=== PATIENT | female | born 1930 | race Caucasian/White ===

== ENCOUNTER 2017-06-13 14:36 | Inpatient (IN) | payer MEDICARE ==
[~2017-06-13] VITALS: Ht 157.5 cm; Wt 53.1 kg
[~2017-06-13 14:36] MED LIST: ANTIBIOTIC PO; ASPI-515 PO; ASPI325T17 PO; CHOL20002 PO; GABA300C10 PO; IBUP200T64 PO; LISI40TA PO; LOVA20TA2 PO; MULT-224 PO; OXYC5TAB2 PO; TRAM50TA2 PO; VIT1TABL32 PO; VITAMIN B1 PO
[2017-06-13] MEDS ORDERED: LIDOCAINE 1%-EPI 1:100K, 20ML INFIL ONE (15:30)
[2017-06-13] MEDS ORDERED: LIDOCAINE 1%, 20ML ONE (17:11)
[2017-06-13] MEDS ORDERED: SODIUM CHLORIDE FLUSH 10ML SYR IVF ONE (17:30)
[2017-06-13 17:43] LABS: HEMATOCRIT 37.2 % (34.6-47.8); HEMOGLOBIN 12.4 g/dL (11.7-16.4); WHITE BLOOD COUNT 11.8 x10^3/uL (3.4-10)
[2017-06-13 17:48] LABS: BLOOD UREA NITROGEN 31 mg/dL (7-18)
[2017-06-13] MEDS ORDERED: POLYETHYLENE GLYCOL 17 GM PACKET PO PRN (20:00)
[2017-06-13] MEDS ORDERED: morphine SULFATE 10 MG/ML, 1ML IVPush PRN (20:00)
[2017-06-13] MEDS ORDERED: BISACODYL 10 MG SUPP PR PRN (20:00)
[2017-06-13] MEDS ORDERED: ONDANSETRON 2MG/ML, 2ML IVPush PRN (20:00)
[2017-06-13] MEDS ORDERED: TEMPLATE NON-FORMULARY MED. (Lovastatin** 20 MG) PO SCH (21:00)
[2017-06-13] MEDS ORDERED: ACETAMINOPHEN 325 MG TABLET ONE (22:53)
[2017-06-13] MEDS: ACETAMINOPHEN 325 MG TABLET PO PRN (23:07)
[2017-06-13] MEDS: SODIUM CHLORIDE 0.9% 1,000 ML IV SCH (23:07)
[2017-06-13 23:53] VITALS: BP 157/68
[2017-06-13] MEDS: GABAPENTIN 300 MG CAPSULE PO SCH (23:55)
[2017-06-14] MEDS ORDERED: CEFAZOLIN PMX 2GM/50ML 50 ML IVPB SCH (01:00)
[2017-06-14 02:25] VITALS: BP 105/63
[2017-06-14 05:21] LABS: HEMATOCRIT 28.1 % (34.6-47.8); HEMOGLOBIN 9.3 g/dL (11.7-16.4); WHITE BLOOD COUNT 9.3 x10^3/uL (3.4-10)
[2017-06-14 05:55] LABS: ASPARTATE AMINO TRANSFERASE 16 U/L (15-37); BLOOD UREA NITROGEN 24 mg/dL (7-18)
[2017-06-14 07:53] VITALS: BP 112/65
[2017-06-14] MEDS: ACETAMINOPHEN 325 MG TABLET PO PRN ×3 (07:57→19:09)
[2017-06-14] MEDS: LISINOPRIL 20 MG TABLET PO SCH (07:57)
[2017-06-14] MEDS: MULTIVITAMIN 1 TABLET PO SCH (07:59)
[2017-06-14] MEDS: SENNA/DOCUSATE TABLET PO SCH (07:59)
[2017-06-14] MEDS: GABAPENTIN 300 MG CAPSULE PO SCH ×2 (07:59→20:34)
[2017-06-14] MEDS: MULTIVITAMINS/MINERALS TABLET PO SCH (07:59)
[2017-06-14] MEDS: CHOLECALCIFEROL 1,000 UNIT TABLET PO SCH (08:00)
[2017-06-14] MEDS: THIAMINE 100MG TABLET PO SCH (08:00)
[2017-06-14 14:12] VITALS: BP 128/63
[2017-06-14] MEDS: SODIUM CHLORIDE 0.9% 1,000 ML IV SCH (14:54)
[2017-06-14] MEDS ORDERED: KETOROLAC 60 MG/2 ML ONE (16:32)
[2017-06-14] MEDS ORDERED: TRANEXAMIC ACID 100 MG/ML, 10ML ONE ×2 (16:32→16:33)
[2017-06-14] MEDS ORDERED: EPINEPHRINE 1 MG/ML, 1ML ONE (16:33)
[2017-06-14] MEDS ORDERED: SODIUM CHLORIDE 0.9% 50 ML ONE (16:33)
[2017-06-14] MEDS ORDERED: VANCOMYCIN 1,000 MG ONE (16:33)
[2017-06-14] MEDS ORDERED: ROPIvacaine/PF 0.5%, 30 ML ONE (16:34)
[2017-06-14] MEDS ORDERED: HYDROmorphone 1 MG/ML, 1ML IV PRN (17:00)
[2017-06-14] MEDS ORDERED: hydrALAzine 20 MG/ML, 1ML IV PRN (17:00)
[2017-06-14] MEDS ORDERED: ONDANSETRON 2MG/ML, 2ML IVPush PRN (17:00)
[2017-06-14] MEDS ORDERED: 0.9 % SODIUM CHLORIDE 50 ML IV SCH (17:00)
[2017-06-14] MEDS ORDERED: FENTANYL PF 100 MCG/2ML IV PRN (17:00)
[2017-06-14] MEDS ORDERED: LABETALOL 5MG/ML, 20ML IV PRN (17:00)
[2017-06-14] MEDS ORDERED: ROCURONIUM 10 MG/ML ONE (17:06)
[2017-06-14] MEDS ORDERED: FENTANYL PF 250 MCG/5ML ONE (17:06)
[2017-06-14] MEDS ORDERED: SUCCINYLCHOLINE 20 MG/ML, 10ML ONE (17:06)
[2017-06-14] MEDS ORDERED: PROPOFOL 10 MG/ML, 20ML ONE (17:06)
[2017-06-14] MEDS ORDERED: CEFAZOLIN 1,000 MG ONE (17:06)
[2017-06-14] MEDS ORDERED: DEXAMETHASONE 4 MG/ML, 1ML ONE (17:06)
[2017-06-14] MEDS ORDERED: PHENYLEPHRINE 10 MG/ML ONE (17:06)
[2017-06-14] MEDS ORDERED: ACETAMINOPHEN 650 MG/20.3 ML UDC ONE (19:09)
[2017-06-14] MEDS: ASPIRIN 81 MG TABLET CHEW PO SCH (20:16)
[2017-06-14] MEDS: LOVASTATIN 40 MG TABLET PO SCH (20:35)
[2017-06-14 20:47] VITALS: BP 111/54
[2017-06-14] MEDS: CEFTRIAXONE PMX 1GM/50ML 50 ML IV SCH (21:47)
[2017-06-15 00:31] VITALS: BP 109/55
[2017-06-15 04:31] VITALS: BP 110/50
[2017-06-15 05:24] LABS: HEMOGLOBIN 7.5 g/dL (11.7-16.4); WHITE BLOOD COUNT 9.8 x10^3/uL (3.4-10)
[2017-06-15] MEDS: SODIUM CHLORIDE 0.9% 1,000 ML IV SCH ×2 (05:33→17:48)
[2017-06-15 05:54] LABS: ASPARTATE AMINO TRANSFERASE 16 U/L (15-37); BLOOD UREA NITROGEN 21 mg/dL (7-18)
[2017-06-15] MEDS: ACETAMINOPHEN 325 MG TABLET PO PRN ×2 (07:12→22:51)
[2017-06-15 07:28] VITALS: BP 110/53
[2017-06-15] MEDS: MULTIVITAMIN 1 TABLET PO SCH (09:00)
[2017-06-15] MEDS: LISINOPRIL 20 MG TABLET PO SCH (09:01)
[2017-06-15] MEDS: GABAPENTIN 300 MG CAPSULE PO SCH ×2 (09:07→21:00)
[2017-06-15] MEDS: MULTIVITAMINS/MINERALS TABLET PO SCH (09:07)
[2017-06-15] MEDS: ASPIRIN 81 MG TABLET CHEW PO SCH ×2 (09:07→21:00)
[2017-06-15] MEDS: SENNA/DOCUSATE TABLET PO SCH (09:08)
[2017-06-15] MEDS: CHOLECALCIFEROL 1,000 UNIT TABLET PO SCH (09:09)
[2017-06-15] MEDS: THIAMINE 100MG TABLET PO SCH (09:09)
[2017-06-15 13:55] VITALS: BP 102/54
[2017-06-15 19:39] VITALS: BP 103/60
[2017-06-15] MEDS: LOVASTATIN 40 MG TABLET PO SCH (21:00)
[2017-06-15] MEDS: CEFTRIAXONE PMX 1GM/50ML 50 ML IV SCH (22:52)
[2017-06-16 03:28] VITALS: BP 112/54
[2017-06-16 05:03] LABS: HEMOGLOBIN 7.1 g/dL (11.7-16.4); WHITE BLOOD COUNT 7.7 x10^3/uL (3.4-10)
[2017-06-16 05:12] LABS: BLOOD UREA NITROGEN 17 mg/dL (7-18)
[2017-06-16 05:13] LABS: HEMATOCRIT 21.1 % (34.6-47.8)
[2017-06-16 06:47] VITALS: BP 129/69
[2017-06-16] MEDS ORDERED: KETOROLAC 30 MG/1 ML IM PRN (07:30)
[2017-06-16] MEDS: ASPIRIN 81 MG TABLET CHEW PO SCH ×2 (08:34→20:55)
[2017-06-16] MEDS: MULTIVITAMINS/MINERALS TABLET PO SCH (08:34)
[2017-06-16] MEDS: LISINOPRIL 20 MG TABLET PO SCH (08:34)
[2017-06-16] MEDS: SENNA/DOCUSATE TABLET PO SCH (08:35)
[2017-06-16] MEDS: ACETAMINOPHEN 325 MG TABLET PO PRN (08:35)
[2017-06-16] MEDS: THIAMINE 100MG TABLET PO SCH (08:35)
[2017-06-16] MEDS: CHOLECALCIFEROL 1,000 UNIT TABLET PO SCH (08:35)
[2017-06-16] MEDS: GABAPENTIN 300 MG CAPSULE PO SCH ×2 (08:36→21:06)
[2017-06-16] MEDS: MULTIVITAMIN 1 TABLET PO SCH (08:36)
[2017-06-16 12:21] LABS: HEMATOCRIT 23.3 % (34.6-47.8); HEMOGLOBIN 7.9 g/dL (11.7-16.4)
[2017-06-16 13:09] VITALS: BP 112/52
[2017-06-16 18:39] VITALS: BP 106/66
[2017-06-16] MEDS: LOVASTATIN 40 MG TABLET PO SCH (20:56)
[2017-06-16] MEDS: CEFTRIAXONE PMX 1GM/50ML 50 ML IV SCH (21:44)
[2017-06-17 01:25] VITALS: BP 157/64
[2017-06-17 05:38] LABS: BLOOD UREA NITROGEN 16 mg/dL (7-18)
[2017-06-17] MEDS: KETOROLAC 30 MG/1 ML IVPush PRN ×2 (05:39→13:10)
[2017-06-17 05:45] LABS: WHITE BLOOD COUNT 5.7 x10^3/uL (3.4-10)
[2017-06-17 05:52] LABS: HEMOGLOBIN 6.9 g/dL (11.7-16.4)
[2017-06-17 05:53] LABS: HEMATOCRIT 20.9 % (34.6-47.8)
[2017-06-17] MEDS: MULTIVITAMIN 1 TABLET PO SCH (07:50)
[2017-06-17] MEDS: GABAPENTIN 300 MG CAPSULE PO SCH ×2 (07:51→21:27)
[2017-06-17] MEDS: SENNA/DOCUSATE TABLET PO SCH (07:52)
[2017-06-17] MEDS: CHOLECALCIFEROL 1,000 UNIT TABLET PO SCH (07:52)
[2017-06-17] MEDS: THIAMINE 100MG TABLET PO SCH (07:53)
[2017-06-17] MEDS: ASPIRIN 81 MG TABLET CHEW PO SCH ×2 (07:53→21:27)
[2017-06-17] MEDS: MULTIVITAMINS/MINERALS TABLET PO SCH (07:53)
[2017-06-17] MEDS: LISINOPRIL 20 MG TABLET PO SCH (07:55)
[2017-06-17 07:56] VITALS: BP 112/57
[2017-06-17 11:28] LABS: HEMOGLOBIN 7.2 g/dL (11.7-16.4)
[2017-06-17 11:29] LABS: HEMATOCRIT 21.6 % (34.6-47.8)
[2017-06-17 14:28] VITALS: BP 110/65
[2017-06-17] MEDS ORDERED: POLYETHYLENE GLYCOL 17 GM PACKET PO PRN (18:30)
[2017-06-17] MEDS ORDERED: ONDANSETRON 2MG/ML, 2ML IVPush PRN (18:30)
[2017-06-17] MEDS ORDERED: BISACODYL 10 MG SUPP PR PRN (18:30)
[2017-06-17 19:15] VITALS: BP 130/66
[2017-06-17] MEDS: LOVASTATIN 40 MG TABLET PO SCH (21:27)
[2017-06-17] MEDS: CEFTRIAXONE PMX 1GM/50ML 50 ML IV SCH (21:27)
[2017-06-18 00:36] VITALS: BP 145/69
[2017-06-18 07:11] VITALS: BP 148/65
[2017-06-18] MEDS: GABAPENTIN 300 MG CAPSULE PO SCH ×2 (09:00→20:42)
[2017-06-18] MEDS: ASPIRIN 81 MG TABLET CHEW PO SCH ×2 (09:31→20:42)
[2017-06-18] MEDS: MULTIVITAMINS/MINERALS TABLET PO SCH (09:31)
[2017-06-18] MEDS: THIAMINE 100MG TABLET PO SCH (09:32)
[2017-06-18 09:33] LABS: OCCBLD OBC PASS
[2017-06-18] MEDS: CHOLECALCIFEROL 1,000 UNIT TABLET PO SCH (09:33)
[2017-06-18] MEDS: MULTIVITAMIN 1 TABLET PO SCH (09:33)
[2017-06-18] MEDS: SENNA/DOCUSATE TABLET PO SCH (09:33)
[2017-06-18] MEDS: LISINOPRIL 20 MG TABLET PO SCH (09:33)
[2017-06-18 13:15] VITALS: BP 135/74
[2017-06-18 19:27] VITALS: BP 138/62
[2017-06-18] MEDS: CEFTRIAXONE PMX 1GM/50ML 50 ML IV SCH (20:42)
[2017-06-18] MEDS: LOVASTATIN 40 MG TABLET PO SCH (20:43)
[2017-06-19 01:45] VITALS: BP 135/72
[2017-06-19 05:30] LABS: HEMOGLOBIN 7.6 g/dL (11.7-16.4); WHITE BLOOD COUNT 4.9 x10^3/uL (3.4-10)
[2017-06-19 05:31] LABS: HEMATOCRIT 22.7 % (34.6-47.8)
[2017-06-19] MEDS: MULTIVITAMINS/MINERALS TABLET PO SCH (08:40)
[2017-06-19] MEDS: ASPIRIN 81 MG TABLET CHEW PO SCH ×2 (08:40→21:18)
[2017-06-19] MEDS: MULTIVITAMIN 1 TABLET PO SCH (08:40)
[2017-06-19] MEDS: SENNA/DOCUSATE TABLET PO SCH (08:41)
[2017-06-19] MEDS: CHOLECALCIFEROL 1,000 UNIT TABLET PO SCH (08:41)
[2017-06-19] MEDS: LISINOPRIL 20 MG TABLET PO SCH (08:41)
[2017-06-19] MEDS: THIAMINE 100MG TABLET PO SCH (08:42)
[2017-06-19] MEDS: GABAPENTIN 300 MG CAPSULE PO SCH ×3 (08:42→21:20)
[2017-06-19 09:14] VITALS: BP 121/70
[2017-06-19] MEDS: ACETAMINOPHEN 325 MG TABLET PO PRN ×2 (12:03→21:17)
[2017-06-19 13:28] VITALS: BP 136/77
[2017-06-19 19:14] LABS: TOTAL IRON BINDING CAPACITY 203 mcg/dL (250-450)
[2017-06-19 20:39] VITALS: BP 117/67
[2017-06-19] MEDS: LOVASTATIN 40 MG TABLET PO SCH (21:19)
[2017-06-20] VITALS (10 sets, daily range): BP systolic 118–151; BP diastolic 57–79
[2017-06-20 05:24] LABS: HEMOGLOBIN 7.2 g/dL (11.7-16.4)
[2017-06-20 06:23] LABS: HEMATOCRIT 22.2 % (34.6-47.8)
[2017-06-20] MEDS: KETOROLAC 30 MG/1 ML IVPush PRN (08:24)
[2017-06-20] MEDS: MULTIVITAMIN 1 TABLET PO SCH (08:24)
[2017-06-20] MEDS: ACETAMINOPHEN 325 MG TABLET PO PRN ×3 (08:24→21:10)
[2017-06-20] MEDS: CHOLECALCIFEROL 1,000 UNIT TABLET PO SCH (08:24)
[2017-06-20] MEDS: MULTIVITAMINS/MINERALS TABLET PO SCH (08:25)
[2017-06-20] MEDS: THIAMINE 100MG TABLET PO SCH (08:25)
[2017-06-20] MEDS: LISINOPRIL 20 MG TABLET PO SCH (08:25)
[2017-06-20] MEDS: GABAPENTIN 300 MG CAPSULE PO SCH ×3 (08:25→09:00)
[2017-06-20] MEDS: SENNA/DOCUSATE TABLET PO SCH (08:26)
[2017-06-20] MEDS: ASPIRIN 81 MG TABLET CHEW PO SCH ×2 (08:26→20:44)
[2017-06-20] MEDS ORDERED: SODIUM CHLORIDE 0.9% IV ONE (09:30)
[2017-06-20] MEDS ORDERED: EPINEPHRINE 1 MG/ML, 1ML IM PRN (09:30)
[2017-06-20] MEDS ORDERED: IRON DEXTRAN COMPLEX 25 MG in SODIUM CHLORIDE 0.9% 50 ML IV ONE (09:30)
[2017-06-20] MEDS ORDERED: IRON DEXTRAN IV PER PHARMACY IV PRN (09:30)
[2017-06-20] MEDS ORDERED: IRON DEXTRAN COMPLEX IV ONE (09:30)
[2017-06-20] MEDS ORDERED: DIPHENHYDRAMINE 50 MG/ML, 1ML IVPush ONE (11:30)
[2017-06-20] MEDS: LOVASTATIN 40 MG TABLET PO SCH (20:44)
[2017-06-21 01:40] VITALS: BP 153/69
[2017-06-21] MEDS: KETOROLAC 30 MG/1 ML IVPush PRN (01:57)
[2017-06-21 05:43] LABS: BLOOD UREA NITROGEN 21 mg/dL (7-18); HEMATOCRIT 29.3 % (34.6-47.8); WHITE BLOOD COUNT 7.3 x10^3/uL (3.4-10)
[2017-06-21 07:30] VITALS: BP 139/66
[2017-06-21 07:45] VITALS: BP 108/75
[2017-06-21] MEDS: SENNA/DOCUSATE TABLET PO SCH ×3 (09:00→09:41)
[2017-06-21] MEDS: ASPIRIN 81 MG TABLET CHEW PO SCH ×2 (09:36→20:15)
[2017-06-21] MEDS: THIAMINE 100MG TABLET PO SCH (09:37)
[2017-06-21] MEDS: MULTIVITAMINS/MINERALS TABLET PO SCH (09:37)
[2017-06-21] MEDS: LISINOPRIL 20 MG TABLET PO SCH (09:37)
[2017-06-21] MEDS: GABAPENTIN 300 MG CAPSULE PO SCH ×2 (09:39→20:17)
[2017-06-21] MEDS: MULTIVITAMIN 1 TABLET PO SCH (09:39)
[2017-06-21] MEDS: CHOLECALCIFEROL 1,000 UNIT TABLET PO SCH (09:40)
[2017-06-21 14:17] VITALS: BP 132/70
[2017-06-21 19:08] VITALS: BP 132/66
[2017-06-21] MEDS: LOVASTATIN 40 MG TABLET PO SCH (20:15)
[2017-06-21] MEDS: ACETAMINOPHEN 325 MG TABLET PO PRN (21:06)
[2017-06-22 00:47] VITALS: BP 138/65
[2017-06-22 05:46] LABS: HEMATOCRIT 30.4 % (34.6-47.8); HEMOGLOBIN 10.2 g/dL (11.7-16.4); WHITE BLOOD COUNT 6.2 x10^3/uL (3.4-10)
[2017-06-22 07:00] VITALS: BP 148/74
[2017-06-22] MEDS: ACETAMINOPHEN 325 MG TABLET PO PRN (08:46)
[2017-06-22] MEDS: SENNA/DOCUSATE TABLET PO SCH (08:46)
[2017-06-22] MEDS: MULTIVITAMIN 1 TABLET PO SCH (08:47)
[2017-06-22] MEDS: MULTIVITAMINS/MINERALS TABLET PO SCH (08:47)
[2017-06-22] MEDS: THIAMINE 100MG TABLET PO SCH (08:47)
[2017-06-22] MEDS: CHOLECALCIFEROL 1,000 UNIT TABLET PO SCH (08:47)
[2017-06-22] MEDS: ASPIRIN 81 MG TABLET CHEW PO SCH (08:47)
[2017-06-22] MEDS: LISINOPRIL 20 MG TABLET PO SCH (08:47)
[2017-06-22] MEDS: GABAPENTIN 300 MG CAPSULE PO SCH (08:47)
[2017-06-22] MEDS ORDERED: ASPI-515 PO (09:33)
[2017-06-22] MEDS ORDERED: BISA10SU65 PR (09:33)
[2017-06-22] MEDS ORDERED: OXYC-302 PO (09:33)
[2017-06-22] MEDS ORDERED: SENN1TAB7 PO (09:33)
[2017-06-22 13:24] VITALS: BP 139/80
[2017-06-22 16:23] VITALS: BP 144/84
== END 2017-06-22 16:35 | DRG 466 ==
LOC: ED 15:03 → EDIP 19:25 → 4NOR 23:13
PROVIDERS: ADMIT Internal Medicine; ATTEND Internal Medicine
PROC: 0WQ2XZZ Repair Face, External Approach (ICD-10-PCS; 2017-06-13)
PROC: 0SRC0J9 Replacement of Right Knee Joint with Synthetic Substitute, Cemented, Open Approach (ICD-10-PCS; 2017-06-14)
PROC: 0T9B70Z Drainage of Bladder with Drainage Device, Via Natural or Artificial Opening (ICD-10-PCS; 2017-06-14)
PROC: 0SPC0JZ Removal of Synthetic Substitute from Right Knee Joint, Open Approach (ICD-10-PCS; principal; 2017-06-14 17:00)
PROC: 30233N1 Transfusion of Nonautologous Red Blood Cells into Peripheral Vein, Percutaneous Approach (ICD-10-PCS; 2017-06-20)
DX: M97.11XA Periprosthetic fracture around internal prosthetic right knee joint, initial encounter (principal); N17.0 Acute kidney failure with tubular necrosis; E44.0 Moderate protein-calorie malnutrition; S01.01XA Laceration without foreign body of scalp, initial encounter; S16.1XXA Strain of muscle, fascia and tendon at neck level, initial encounter; N39.0 Urinary tract infection, site not specified; S06.0X9A Concussion with loss of consciousness of unspecified duration, initial encounter; W01.0XXA Fall on same level from slipping, tripping and stumbling without subsequent striking against object, initial encounter; I10 Essential (primary) hypertension; E78.5 Hyperlipidemia, unspecified; D50.0 Iron deficiency anemia secondary to blood loss (chronic); J32.0 Chronic maxillary sinusitis; M43.12 Spondylolisthesis, cervical region; Y93.01 Activity, walking, marching and hiking; Z96.642 Presence of left artificial hip joint; M46.90 Unspecified inflammatory spondylopathy, site unspecified; S01.81XA Laceration without foreign body of other part of head, initial encounter; Z68.21 Body mass index [BMI] 21.0-21.9, adult; Z79.82 Long term (current) use of aspirin; Z86.73 Personal history of transient ischemic attack (TIA), and cerebral infarction without residual deficits
CPT/HCPCS: 12011; 36415; 70450; 72125; 80048; 80053; 81001; 82040; 82272; 82607; 82746; 83540; 83550; 85014; 85018; 85025; 85610; 85730; 86850; 86900; 86923; 87077; 87086; 87186; 93005; C1713; J0171; J0690; J0696; J1100; J1750; J1885; J2704; J2795; J3010; J3370; C1762; C1776; J0330; J1200; J2370; J7030; J7050; P9016

== ENCOUNTER → 2017-10-24 | Outpatient (CLI) | payer MEDICARE ==
[~2017-10-24] MED LIST changes: +BISA10SU65 PR; +OXYC-302 PO; +SENN1TAB7 PO
[2017-10-24 11:30] LABS: MEAN CORPUSCULAR HEMOGLOBIN 31.7 pg (27.0-34.8); MEAN CORPUSCULAR HGB CONC 32.9 g/dL (32.4-35.8); MEAN CORPUSCULAR VOLUME 96.2 fL (80-100); MEAN PLATELET VOLUME 8.2 fL (7.4-10.4); PLATELET COUNT 338 x10^3/uL (130-400); RED BLOOD COUNT 4.27 x10^6/uL (3.82-5.3); RED CELL DISTRIBUTION WIDTH 13.4 % (9.6-15.2)
[2017-10-24 11:43] LABS: ANION GAP 7 mmol/L (5-15); CALCIUM 10.4 mg/dL (8.5-10.1); CHLORIDE 109 mmol/L (98-107)
[2017-10-24 11:55] LABS: ALANINE AMINOTRANSFERASE 22 U/L (12-78); ALKALINE PHOSPHATASE 112 U/L (45-117); BILIRUBIN,TOTAL 0.6 mg/dL (0.2-1.0); CHOL/HDL RATIO 1.8; CHOLESTEROL, TOTAL 146 mg/dL (140-239); CREATININE 0.85 mg/dL (0.55-1.02); HDL CHOL % 55 % (28-40); HDL CHOLESTEROL (DIRECT) 80 mg/dL (40-60); LDL CHOLESTEROL,CALCULATED 34 mg/dL (54-169); LDL/HDL RATIO 0.4 (0.5-3.0); TOTAL PROTEIN 7.2 g/dL (6.4-8.2); TRIGLYCERIDES 159 mg/dL (50-200); VLDL CHOLESTEROL 32 mg/dL (0-25)
[2017-10-25 13:08] LABS: MICROSCOPIC INDICATED
== END | disposition home or self-care (01) ==
LOC: LAB 10:59
PROVIDERS: ATTEND Family Medicine
DX: N18.3 Chronic kidney disease, stage 3 (moderate) (principal); E55.9 Vitamin D deficiency, unspecified; E78.2 Mixed hyperlipidemia; R82.99 Other abnormal findings in urine
CPT/HCPCS: 36415; 80053; 80061; 81001; 84443; 85027; 87077; 87086; 87186

== ENCOUNTER → 2018-01-22 | Outpatient (CLI) | payer MEDICARE ==
[2018-01-22 11:03] LABS: MEAN CORPUSCULAR HEMOGLOBIN 31.2 pg (27.0-34.8); MEAN CORPUSCULAR HGB CONC 33.4 g/dL (32.4-35.8); MEAN CORPUSCULAR VOLUME 93.4 fL (80-100); MEAN PLATELET VOLUME 8.8 fL (7.4-10.4); MICROSCOPIC AUTO; PLATELET COUNT 283 x10^3/uL (130-400); RED BLOOD COUNT 4.28 x10^6/uL (3.82-5.3); RED CELL DISTRIBUTION WIDTH 12.8 % (9.6-15.2)
[2018-01-22 11:09] LABS: ALANINE AMINOTRANSFERASE 34 U/L (12-78); ALBUMIN 3.9 g/dL (3.4-5.0); ANION GAP 8 mmol/L (5-15); CALCIUM 10.4 mg/dL (8.5-10.1); CHLORIDE 112 mmol/L (98-107); CHOLESTEROL, TOTAL 135 mg/dL (140-239); CREATININE 1.02 mg/dL (0.55-1.02); TRIGLYCERIDES 117 mg/dL (50-200); VLDL CHOLESTEROL 23 mg/dL (0-25)
[2018-01-22 11:20] LABS: ALKALINE PHOSPHATASE 105 U/L (45-117); BILIRUBIN,TOTAL 0.6 mg/dL (0.2-1.0); CHOL/HDL RATIO 1.7; HDL CHOL % 58 % (28-40); HDL CHOLESTEROL (DIRECT) 78 mg/dL (40-60); LDL CHOLESTEROL,CALCULATED 34 mg/dL (54-169); LDL/HDL RATIO 0.4 (0.5-3.0); THYROID STIMULATING HORMONE 0.896 mIU/L (0.358-3.740)
== END ==
LOC: LAB 10:42
PROVIDERS: ATTEND Family Medicine
DX: I12.9 Hypertensive chronic kidney disease with stage 1 through stage 4 chronic kidney disease, or unspecified chronic kidney disease (principal); N18.3 Chronic kidney disease, stage 3 (moderate); N17.0 Acute kidney failure with tubular necrosis; E55.9 Vitamin D deficiency, unspecified; E78.2 Mixed hyperlipidemia; Z79.899 Other long term (current) drug therapy
CPT/HCPCS: 36415; 80053; 80061; 81001; 84443; 85027; 87077; 87086; 87186